=== PATIENT | female | born 1970 | race Caucasian/White ===

== ENCOUNTER 2024-12-25 09:30 | Outpatient (CLI) | payer BC, SELFPAY ==
--- NOTE | ~2024-12-25 | US_ITS ---
EXAMINATION: US right upper quadrant DATE: 12/25/2024 10:06 INDICATION: ruq pain TECHNIQUE: Multiple grayscale and Doppler ultrasound images of the right upper quadrant were obtained . COMPARISON: None available. FINDINGS: The visualized portions of the pancreas are normal. The liver is normal with normal echogen icity and echotexture. No surface nodularity. Normal hepatopetal flow in the main portal vein. The ga llbladder is normal with no abnormal wall thickening, pericholecystic fluid or stones. The common benjie e duct measures 4 mm. There was no sonographic Bean sign. IMPRESSION: Normal right upper quadrant ultrasound findings. Reviewed, dictated and finalized at location K.
== END 2024-12-25 09:31 | disposition home or self-care (01) ==
LOC: GOSHIMG 09:31
PROVIDERS: PCP Nurse Practitioner Family; Visit Provider Nurse Practitioner Family
DX: R10.11 Right upper quadrant pain (principal)
CPT/HCPCS: 76705